=== PATIENT | male | born 1945 | race Caucasian/White ===

== ENCOUNTER 2021-08-22 14:09 | Observation (INO) | payer OTHER, SELFPAY ==
[2021-08-22] VITALS (68 sets, daily range): BP systolic 109–193; BP diastolic 55–90; PULSE 73–100; RESP 14–28; TEMP 36.3–37; O2SAT 92–99
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
[2021-08-22 14:56] LABS: Abs Immature Grans 0.05 10^3/uL (0.0-0.06); Absolute Basophil Count 0.01 10^3/uL (0.0-0.2); Absolute Eosinophil Count 0.01 10^3/uL (0.0-0.7); Absolute Lymphocyte Count 0.43 10^3/uL (1.2-3.4); Absolute Monocyte Count 0.48 10^3/uL (0.1-0.8); Absolute Neutrophil Count 1.99 10^3/uL (1.2-6.7); Basophils % 0.3; Eosinophils % 0.3; HCT 38.4 % (40.0-50.0); HGB 12.7 g/dL (13.5-17.5); Immature Grans % 1.7; Lymphocytes % 14.5; MCH 32.3 pg (27.0-33.0); MCHC 33.1 % (32.0-36.0); MCV 97.7 fL (80-95); MPV 9.4 fL (8.0-11.0); Monocytes % 16.2; Nucleated RBC 0 %; Platelet Count 151 10^3/uL (130-400); RBC 3.93 10^6/uL (4.36-5.78); RDW 12.5 % (11.8-14.1); RDW-SD 45.4 fL; WBC 2.97 10^3/uL (4.4-10.8)
[2021-08-22] MEDS: Normal Saline 500 ML IV (15:00)
[2021-08-22] MEDS: ACETAMINOPHEN 1,000 MG/100 ML BTL 400 MG IVPB (15:05)
[2021-08-22 15:12] LABS: ALT 26 U/L (16-63); AST 21 U/L (15-37); Albumin 3.7 g/dL (3.4-5.0); Alkaline Phosphatase 53 U/L (46-116); Anion Gap 9.7 mmol/L (3-11); BUN 21 mg/dL (7-18); Bilirubin, Total 0.9 mg/dL (0.2-1.0); CO2 26.3 mmol/L (21.0-32.0); CREATININE 1.3 mg/dL (0.70-1.30); Chloride 103 mmol/L (98-107); Estimated GFR 53.53 (mL/min/1.73m2); Glucose 200 mg/dL (74-106); Magnesium 1.6 mg/dL (1.8-2.4); Potassium 4.5 mmol/L (3.5-5.1); Sodium 139 mmol/L (136-145); Total Protein 7.2 g/dL (6.4-8.2)
[2021-08-22 15:14] LABS: Troponin I 70 ng/L (<or=60)
--- NOTE | 2021-08-22 16:15 | RT.EKG_ITS ---
APPROVED REPORT Exam: Resting ECG Reason for Exam: chest pain Patient Location: E HR:89 bpm ECG Measurements Heart Rate 89 AXIS AZ 146 P 4 QRSd 154 QRS -9 QT 415 T 40 QTc 506 Conclusion Sinus rhythm...normal P axis, V-rate 60- 99 Right bundle branch block...QRSd>120, terminal axis(90,270) Abnrm T, consider ischemia, anterolateral lds...T <-0.20mV, I aVL V2-V6. Sinus. RBBB. No STEMI. No significant change from previous EKG. I have reviewed and interpreted ECG and agree with software generated interpretation.
[2021-08-22] MEDS: Aspirin 325 MG TAB PO (16:20)
[2021-08-22] MEDS: MAGNESIUM SULFATE 1 GM/100 ML BAG IVPB (16:32)
[2021-08-22 18:11] LABS: Troponin I 67 ng/L (<or=60)
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
[2021-08-22] MEDS: Insulin Aspart 300 UNITS/3 ML PEN 28 UNITS SC (20:44)
[2021-08-22 21:59] LABS: Source Nasal/Nares
[2021-08-22 23:50] LABS: COVID-19 PCR Negative (Negative)
[2021-08-23] MEDS: Simvastatin 40 MG TAB 80 MG PO (00:38)
[2021-08-23] MEDS: Heparin 5,000 UNITS/ML VIAL 5000 UNITS SC (00:38)
[2021-08-23 03:08] VITALS: BP 162/73; PULSE 74; RESP 19; TEMP 36.2; O2SAT 96
[2021-08-23 05:30] LABS: Abs Immature Grans 0.04 10^3/uL (0.0-0.06); Absolute Basophil Count 0.01 10^3/uL (0.0-0.2); Absolute Eosinophil Count 0.01 10^3/uL (0.0-0.7); Absolute Lymphocyte Count 0.43 10^3/uL (1.2-3.4); Absolute Monocyte Count 0.75 10^3/uL (0.1-0.8); Absolute Neutrophil Count 3.03 10^3/uL (1.2-6.7); Basophils % 0.2; Eosinophils % 0.2; HCT 35.7 % (40.0-50.0); HGB 11.6 g/dL (13.5-17.5); Immature Grans % 0.9; Lymphocytes % 10.1; MCH 31.5 pg (27.0-33.0); MCHC 32.5 % (32.0-36.0); MPV 9.6 fL (8.0-11.0); Monocytes % 17.6; Nucleated RBC 0 %; Platelet Count 137 10^3/uL (130-400); RBC 3.68 10^6/uL (4.36-5.78); RDW 12.6 % (11.8-14.1); WBC 4.27 10^3/uL (4.4-10.8)
[2021-08-23 05:44] LABS: ALT 21 U/L (16-63); AST 14 U/L (15-37); Albumin 3.4 g/dL (3.4-5.0); Alkaline Phosphatase 50 U/L (46-116); Anion Gap 8.6 mmol/L (3-11); BUN 19 mg/dL (7-18); Bilirubin, Total 0.9 mg/dL (0.2-1.0); CO2 26.4 mmol/L (21.0-32.0); CREATININE 1.1 mg/dL (0.70-1.30); Calcium 8.5 mg/dL (8.5-10.1); Chloride 105 mmol/L (98-107); Glucose 138 mg/dL (74-106); Magnesium 1.9 mg/dL (1.8-2.4); Sodium 140 mmol/L (136-145); Total Protein 6.6 g/dL (6.4-8.2)
[2021-08-23 05:54] LABS: Troponin I 66 ng/L (<or=60)
[2021-08-23 07:00] VITALS: PULSE 87
[2021-08-23 08:11] VITALS: BP 149/73; PULSE 82; RESP 17; TEMP 36.6; O2SAT 97
[2021-08-23] MEDS: Losartan 50 MG TAB 100 MG PO (08:27)
[2021-08-23] MEDS: Senna TAB 1 TAB PO (08:27)
[2021-08-23] MEDS: Insulin Aspart 300 UNITS/3 ML PEN SC ×2 (08:27→11:58)
--- NOTE | 2021-08-23 08:30 | DI.US_ITS ---
APPROVED REPORT EXAM: Comprehensive 2D, Doppler, and color-flow Echocardiogram Patient Location: In-Patient Room/Bed: 226 Fire Prevention Engineer: Maranda Childers RDCS (AE) Indications: Atypical chest pain, Elevated tropoin Other Information Study Quality: Poor. Technically limited study due to body habitus, inability to position patient. Conclusion Normal left ventricular wall thickness and chamber size. Estimated ejection fraction appears approxi mately 55%, normal wall motion Right ventricle is not well visualized size could not be accurately assessed The aortic valve is sclerotic and probably trileaflet. There is mild aortic regurgitation Normal mitral valve with trace regurgitation Normal tricuspid valve with trace regurgitation. Estimated right ventricular systolic pressure is 28 mmHg Mildly dilated ascending aorta Wall motion Left Ventricle The left ventricle is normal size. The overall left ventricular systolic function appears normal. The re is normal left ventricular wall thickness. Regional wall motion is grossly normal. There is no carlene tricular septal defect visualized. LVEF is 55%. Right Ventricle Right ventricle is not well visualized. The RVSP is 28.6 mmHg. Right ventricular systolic function co uld not be assessed. Atria Left atrium is not well visualized. Right atrium is not well visualized. The interatrial septum is in tact with no evidence for an atrial septal defect. Aortic Valve The aortic valve is sclerotic Aortic valve is probably trileaflet. There is no aortic valvular stenos is. Mild aortic regurgitation. Mitral Valve The mitral valve is normal in structure. No evidence of mitral valve stenosis. Trace mitral regurgita tion. Tricuspid Valve The tricuspid valve is normal in structure. There is no tricuspid valve stenosis. Trace tricuspid reg urgitation. Pulmonic Valve The pulmonary valve is normal in structure. There is no pulmonic valvular stenosis. Trace pulmonic re gurgitation. Great Vessels The aortic root is normal in size. The ascending aorta is mildly dilated.3.74 cm Aortic arch is not w ell visualized. IVC is normal in size and collapses >50% with inspiration. Pericardium There is no pericardial effusion. 2D Dimensions IVSD d PLAX 1.18 cm M: 0.6-1.2 LVPW d PLAX 1.17 cm M: 0.6 - 1.2 LVID d PLAX 4.93 cm M: 4.2 - 5.8 LVDs 3.50 cm M: 2.5 - 4.0 Ao Root d 2.71 cm M: 3.1 - 3.7 Ao Asc Diam d 3.74 cm M: 2.6 - 3.4 LV EF Elodia 54.9 % FS 28.55 % M-Mode TAPSE 2.73 cm (M/F) >1.7 LV Diastology MV E' medial 0.092 (>0.07 m/s) E/A Ratio 0.7 LV E/e MED 6.15 (<14) MV E Vmax 0.57 (0.4-1.3 m/s) MV E' lateral 0.073 (>0.1 m/s) MV A Vmax 0.80 (0.4-1.3 m/s) LV E/e LAT 7.75 (<14) MV E/A Ratio 0.70 MV E/E' medial 6.19 MV E/E' lateral 7.78 Aortic Valve LVOT Area 3.33 cm2 AoV Area Vmax 1.81 cm2 LVOT Vmax 1.01 m/s AoV Area/ BSA (Vmax) 0.80 cm2/m2 LVOT Mean Curtis. 0.74 m/s ENID Mean Curtis. 1.95 cm2 LVOT Peak Grad 4.0 mmHg ENID Mean Curtis. Index 0.87 cm2/m2 LVOT Mean Grad 2.4 mmHg AR DT 1720 msec LVOT VTI 0.231 m AR PHT 499 msec LVOT Diam s 2.05 cm AoV Vmax 1.85 m/s Velocity Ratio 0.54 AoV Mean Curtis. 1.27 m/s AoV Peak Grad 13.7 mmHg LVOT SV 77.01 mL AoV Mean Grad 7.2 mmHg AoV VTI 0.355 m AoV Area VTI 2.17 cm2 AoV Area/ BSA (VTI) 0.96 cm/m2 Mitral Valve MV DT 232 (160-240 msec) MV PHT 67 msec MV Area PHT 3.27 cm2 MV VTI 0.294 m MV Area VTI 2.62 (4.0-6.0 cm2) Pulmonary Valve PV Vmax 0.93 (0.5-1.5 m/s) RVOT Peak Gr. 1.05 mmHg PV Peak Grad 3.5 mmHg RVOT Mean Gr. 0.55 mmHg PV Mean Grad 2.2 mmHg RVOT VTI 0.102 m PV VTI 0.191 m RVOT Vmax 0.51 m/s Tricuspid Valve TR Peak Grad 25.6 mmHg TR Vmax 2.53 m/s RA Pressure 3.00 mmHg RVSP (TR) 28.6 mmHg
[2021-08-23] MEDS: Insulin NPH-Human 300 UNITS/3 ML PEN 28 UNIT SC (10:30)
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
[2021-08-23 11:51] VITALS: BP 155/90; PULSE 84; RESP 17; TEMP 36.8; O2SAT 96
[2021-08-23 12:30] VITALS: PULSE 90
== END 2021-08-23 13:05 | disposition home or self-care (01) ==
LOC: ER 19:23 → MS 21:30
PROVIDERS: Admitting Provider Family Medicine; Emergency Provider Physician Assistant; PCP Nurse Practitioner Family; Visit Provider Family Medicine
DX: R07.89 Other chest pain (principal); S40.012A Contusion of left shoulder, initial encounter; I45.10 Unspecified right bundle-branch block; I10 Essential (primary) hypertension; V89.2XXA Person injured in unspecified motor-vehicle accident, traffic, initial encounter; R74.8 Abnormal levels of other serum enzymes; E11.9 Type 2 diabetes mellitus without complications; E66.01 Morbid (severe) obesity due to excess calories; Z68.41 Body mass index [BMI] 40.0-44.9, adult; Z79.4 Long term (current) use of insulin; Z79.84 Long term (current) use of oral hypoglycemic drugs
CPT/HCPCS: 36415; 36416; 74177; 80053; 82962; 85027; 87635; 93005; 93306; 96361; 96365; 96366; 96368; 96372; 99285; 83735; 84484; 85025; 93010; 99217; 99220; G0378; J0131; J1644; J3475